=== PATIENT | female | born 1960 | race Caucasian/White ===

== ENCOUNTER 2016-08-14 12:13 | Day surgery (SDC) | payer BC ==
[~2016-08-14] VITALS: Ht 170.2 cm; Wt 70.5 kg
[2016-08-14] MEDS ORDERED: DICL75TA2 PO (13:37)
[2016-08-14] MEDS ORDERED: HYDR-2086 PO (13:37)
[2016-08-14] MEDS ORDERED: CYCL-319 PO (13:37)
[2016-08-14] MEDS ORDERED: GABA100C14 PO (13:37)
[2016-08-14] MEDS ORDERED: TRAM100T27 PO (13:37)
[2016-08-14] MEDS ORDERED: MAGN100T6 PO (13:37)
[2016-08-14] MEDS ORDERED: SUMA100T4 PO (13:37)
[2016-08-14 13:45] VITALS: Ht 170.2 cm; Wt 70.5 kg
[2016-08-14] MEDS ORDERED: PROPOFOL 40 ML ONE (14:37)
[2016-08-14] MEDS ORDERED: LIDOCAINE 2% (SDV) 5 ML INJ ONE (14:39)
[2016-08-14 14:44] VITALS: BP 128/64; PULSE 83; RESP 16
[2016-08-14 15:30] VITALS: BP 118/69; PULSE 78; RESP 17
--- NOTE | 2016-08-14 15:43 | GILP ---
DATE OF PROCEDURE: 08/14/2016 NAME OF PROCEDURE: Colonoscopy. SURGEON: Germán Allen MD PREOPERATIVE DIAGNOSIS: Screening colonoscopy. POSTOPERATIVE DIAGNOSES: 1. Colonoscopy all the way to the cecum. 2. Poor prep, making the exam suboptimal. 3. Internal hemorrhoids. INDICATION FOR THE PROCEDURE: Ms. Kaye Strong is a 56-year-old female patient who was scheduled for screening colonoscopy. The procedure and possible complications were well explained to the patient, she understood and cons ented to the procedure. DESCRIPTION OF PROCEDURE: Under the influence of anesthesia, the colonoscope was carefully introduc ed in the rectum and under direct vision, it was advanced all the way to the cecum. FINDINGS: The patient had poor prep, making the exam very suboptimal. The patient was noted to hav e internal hemorrhoids. She tolerated the procedure very well and there was no complication from the procedure. At the end of the procedure, she was awake with stable vital signs and she was discharged home to the care of h er family. IMPRESSION: 1. Colonoscopy all the way to the cecum. 2. Poor prep making the exam suboptimal. 3. Internal hemorrhoids. PLAN: Would recommend repeat colonoscopy with better preparation in 1 year. Dictated By: GERMÁN CALVILLO/KATHY Conf#: [id number] DID#: [id number] CC: GERMÁN ALLEN MD;*End*
== END 2016-08-14 15:52 | disposition home or self-care (01) ==
LOC: GIL 12:13
PROVIDERS: ATTEND Internal Medicine Gastroenterology
DX: Z12.11 Encounter for screening for malignant neoplasm of colon (principal); K64.8 Other hemorrhoids
CPT/HCPCS: 45378; Z7610